=== PATIENT | female | born 1960 | race Caucasian/White ===

== ENCOUNTER 2018-08-20 16:28 | Emergency (ER) | payer BC ==
[2018-08-20 16:52] VITALS: BP 153/68
--- NOTE | 2018-08-20 17:06 | UC ---
Skin Complaint HPI - HPI Summary HPI Summary: 58-year-old woman comes in with a chief complaint of a right forearm skin injury. 4 days ago while she was cleaning the kitchen she noticed a blister on the right forearm that she accidentally broke. She's been putting antibiotic ointment on it since that time and there is a scab with a blister broke however the surrounding area is getting erythematous and more firm. No fevers or chills feels well otherwise. No prior history of HSV are MRSA. No drainage at this time. 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 Pain Intensity: 1 - Allergy/Home Medications Allergies/Adverse Reactions: Allergies Allergy/AdvReac Type Severity Reaction Status Date / Time No Known Allergies Allergy Verified 08/20/18 16:53 Home Medications: Home Medications Escitalopram (NF) [Lexapro 5 mg (NF)] 5 mg PO DAILY 08/20/18 [History Confirmed 08/20/18] Levothyroxine TAB* [Synthroid TAB*] 88 mcg PO 0800 08/20/18 [History Confirmed 08/20/18] PMH/Surg Hx/FS Hx/Imm Hx Previously Healthy: Yes Endocrine History: Hypothyroidism - Surgical History Surgical History: None - Family History Known Family History: Positive: Non-Contributory - Social History Alcohol Use: None Substance Use Type: None Smoking Status (MU): Former Smoker Review of Systems All Other Systems Reviewed And Are Negative: Yes Constitutional: Positive: Negative Skin: Positive: Other - SEE HPI Eyes: Positive: Negative ENT: Positive: Negative Respiratory: Positive: Negative Cardiovascular: Positive: Negative Gastrointestinal: Positive: Negative Motor: Positive: Negative Neurovascular: Positive: Negative Musculoskeletal: Positive: Negative Neurological: Positive: Negative Psychological: Positive: Negative Is Patient Immunocompromised?: No Physical Exam Triage Information Reviewed: Yes Appearance: Well-Appearing, No Pain Distress, Well-Nourished Vital Signs: Initial Vital Signs Temp 98.8 F 08/20/18 16:48 Pulse 75 08/20/18 16:48 Resp 16 08/20/18 16:48 BP 153/68 08/20/18 16:48 Pulse Ox 100 08/20/18 16:48 Vital Signs Reviewed: Yes Eye Exam: Normal Eyes: Positive: Conjunctiva Clear Neck exam: Normal Neck: Positive: Supple Respiratory: Positive: No respiratory distress Musculoskeletal Exam: Normal Musculoskeletal: Positive: Strength Intact Neurological Exam: Normal Neurological: Positive: Alert, Muscle Tone Normal Psychological Exam: Normal Psychological: Positive: Age Appropriate Behavior Skin: Positive: Other - Right forearm patient has a 1 cm diameter wound that is superficial and it has a scab on it. It's surrounded by erythema there is no drainage at this time. It's mildly swollen underneath there is no fluctuance of abscess. No streaking. Course/Dx - Course Course Of Treatment: We discussed the different possibilities the cause of the wound. Potential the patient could have burned herself and then broke the blister. No history of HSV although that still a possibility. Blisters are large for HSV. Inconsistent with MRSA infection. Another possibility is that she's having a reaction to the neomycin she's been putting on it. I let her know to stop using the antibiotic ointment she is using at this time. At this time we'll treat with Keflex and mupirocin. Reevaluation if worse or not improving. - Diagnoses Provider Diagnosis: Cellulitis of right forearm Discharge - Sign-Out/Discharge Documenting (check all that apply): Patient Departure All imaging exams completed and their final reports reviewed: No Studies - Discharge Plan Condition: Stable Disposition: HOME Prescriptions: Cephalexin CAP* [Keflex CAP*] 500 mg PO QID #40 cap Mupirocin 1 applic TOPICAL BID #22 gm Patient Education Materials: Cellulitis (ED) Referrals: Jacinda Estrada MD [Primary Care Provider] - Additional Instructions: FOLLOW UP WITH YOUR DOCTOR IF NOT COMPLETELY IMPROVED. GET RECHECKED FOR ANY WORSENING OF YOUR CONDITION; SPREAD ON INFECTION, FEVER, YOU FEEL ILL OR QUESTIONS OR CONCERNS. - Billing Disposition and Condition Condition: STABLE Disposition: Home
== END 2018-08-20 17:15 | disposition home or self-care (01) ==
LOC: UCEAST 16:28
DX: L03.113 Cellulitis of right upper limb (principal); E03.9 Hypothyroidism, unspecified; Z79.899 Other long term (current) drug therapy; Z87.891 Personal history of nicotine dependence
CPT/HCPCS: 99212; G0463

== ENCOUNTER 2019-09-16 09:18 | Emergency (ER) | payer BC ==
--- OUTSIDE RECORDS SUMMARY | 2019-09-16 11:20 | XMS REPORT | Summary of Care ---
:1960 Author Organization [facility] Address [address] [place] [place] [address] Care Team Providers Name Role Phone Jacinda Estrada Primary Care Provider Reason for Visit Reason Comments Physical pap 03/25/16, mammo 12/17/18, dexa 04/05/14, colonoscopy 10/24/15 Imm/Inj Tdap and Shingrix administered today Gynecologic Exam Encounter Details Date Type Department Care Team Description 09/14/2019 Office Visit Jacinda Renee MD Routine general medical examination at a health care facility (Primary Dx); Medicine [address] Encounter for gynecological examination; [address] [place] [address] Encounter for screening breast examination; [place] [address] Acquired hypothyroidism; [phone] PTSD (post-traumatic stress disorder); (Fax) Elevated blood sugar; Lipid disorder; Need for vaccination; Encounter for gynecological examination without abnormal finding; Vegetarian Allergies Active Allergy Reactions Severity Noted Date Comments No Known Allergies Unknown Reaction 04/11/2008 documented as of this encounter (statuses as of 09/14/2019) Medications Medication Sig Dispensed Refills Start Date End Date Status Multiple Take by mouth 0 Active Vitamins-Minerals (ZINC NEEDED. PO) levothyroxine Take 1 Tab by 90 Tab 3 12/23/2018 Active (SYNTHROID) 88 MCG Oral mouth BEFORE TabIndications: Acquired BREAKFAST. hypothyroidism escitalopram (LEXAPRO) 5 Take 1 Tab by 90 Tab 3 12/23/2018 Active MG Oral TabIndications: mouth DAILY. PTSD (post-traumatic stress disorder) documented as of this encounter (statuses as of 09/14/2019) Active Problems Problem Noted Date Esophageal dilatation 07/01/2018 Osteopenia 06/17/2014 PTSD (post-traumatic stress disorder) 11/18/2012 Hypothyroid 11/12/2011 Vegetarian diet 10/15/2011 documented as of this encounter (statuses as of 09/14/2019) Immunizations Name Administration Dates Next Due Adacel TdaP 03/05/2007 TD Vaccine 12/12/1997 TDAP Vaccine 09/14/2019 Tuberculin Skin Test 12/01/2002 ZOSTER (SHINGRIX) VACCINE 09/14/2019 documented as of this encounter Social History Tobacco Use Types Packs/Day Years Used Date Former Smoker 1.5 20 Quit: 07/14/1991 Smokeless Tobacco: Former User Chew Quit: 07/14/1997 Comments: quit 1991 Alcohol Use Drinks/Week oz/Week Comments No 0 Standard drinks or equivalent 0.0 Sex Assigned at Date Recorded Not on file documented as of this encounter Last Filed Vital Signs Vital Sign Reading Time Taken Comments Blood Pressure 114/62 09/14/2019 8:54 AM EST Pulse 60 09/14/2019 8:54 AM EST Temperature 36.8 09/14/2019 8:54 AM EST C (98.3 F) Respiratory Rate - - Oxygen Saturation 97% 09/14/2019 8:54 AM EST Inhaled Oxygen Concentration - - Weight 63 kg (138 lb 12.8 oz) 09/14/2019 8:54 AM EST Height 167.6 cm (5' 6") 09/14/2019 8:54 AM EST Body Mass Index 22.4 09/14/2019 8:54 AM EST documented in this encounter Progress Notes Jacinda Estrada MD - 09/14/2019 9:00 AM EST PATIENT: Oly Francisco DATE: 09/14/2019 Oly Francisco is a 59-y.o. female presents for routine physical exam and Also , she has additionalcomplaints of 1. Vegetarian diet .- ( dairy ) Patient Active Problem List Diagnosis ? Vegetarian diet ? Hypothyroid ? PTSD (post-traumatic stress disorder) ? Osteopenia ? Esophageal dilatation Exercize yes No MINA. No cardiopulmonary symptoms as dyspnea, cough. palpitations , or chest pain on exertion. No upper or lower GI complaints as heartburn, abdominal pain, change in bowel habits, blackor bloody stools. No urinary tract symptoms or incontinence. No symptoms as nocturia, discharge No bruising/ bleeding. No neurological complaints as dysphagia, imbalance, vertigo , focal weakness. No insomnia.+ Rested after nights sleep. No depression. Does not stop breathing at night. Current Outpatient Medications Medication Sig ? escitalopram (LEXAPRO) 5 MG Oral Tab Take 1 Tab by mouth DAILY. ? levothyroxine (SYNTHROID) 88 MCG Oral Tab Take 1 Tab by mouth BEFORE BREAKFAST. ? Multiple Vitamins-Minerals (ZINC PO) Take by mouth NEEDED. No current facility-administered medications for this visit. Social History Socioeconomic History ? Marital status: Other Spouse name: Not on file ? Number of children: Not on file ? Years of education: Not on file ? Highest education level: Not on file Occupational History ? Not on file Social Needs ? Financial resource strain: Not on file ? Food insecurity Worry: Not on file Inability: Not on file ? Transportation needs Medical: Not on file Non-medical: Not on file Tobacco Use ? Smoking status: Former Smoker Packs/day: 1.50 Years: 20.00 Pack years: 30.00 Last attempt to quit: 07/14/1991 Years since quittin.1 ? Smokeless tobacco: Former User Types: Chew Quit date: 07/14/1997 ? Tobacco comment: quit 1991 Substance and Sexual Activity ? Alcohol use: No Alcohol/week: 0.0 standard drinks ? Drug use: No ? Sexual activity: Yes Partners: Female Lifestyle ? Physical activity Days per week: Not on file Minutes per session: Not on file ? Stress: Not on file Relationships ? Social connections Talks on phone: Not on file Gets together: Not on file Attends christian service: Not on file Active member of club or organization: Not on file Attends meetings of clubs or organizations: Not on file Relationship status: Not on file ? Intimate partner violence Fear of current or ex partner: Not on file Emotionally abused: Not on file Physically abused: Not on file Forced sexual activity: Not on file Other Topics Concern ? Back Care Not Asked ? Bike Helmet Not Asked ? Blood Transfusions Not Asked ? Caffeine Concern Not Asked ? Exercise Not Asked ? Hobby Hazards Not Asked ? International Travel Not Asked ? Service Not Asked ? Occupational Exposure Not Asked ? Seat Belt Not Asked ? Self-Exams Not Asked ? Sleep Concern Not Asked ? Special Diet Not Asked ? Stress Concern Not Asked ? Weight Concern Not Asked Social History Narrative Works at [employer]. Family History Problem Relation Age of Onset ? Breast Cancer Maternal Grandmother ? Arthritis Mother also Parkinsons ? Hypertension Mother OBJECTIVE: BP 114/62 | Pulse 60 | Temp 98.3 F (36.8 C) | Ht 5' 6" (1.676 m) | Wt 138 lb 12.8 oz (63kg) | LMP 05/10/2010 | SpO2 97% | BMI 22.40 kg/m Gen well Heent: ears TM and canals normal eyes Perrl; EOMI oroph-wnl Neck- no JVD,thyromegaly, bruit or lymphademopathy No supraclavicular, axillary or inguinal lymphadenopathy Lungs-clear to auscultation CV RRR no Murmur, gallop or clilck Breasts-no masses or diimpling (examined supine and sitting) Abd. nontender; no organomegaly, abnormal pulsations , bowel sounds normoactive - Bimanual urethra/ vul/vag neg; cervix wnl; uterus and , adnexa-unable Ext-no edema; rash, DP +2 skin- no rashes or suspicious lesions Neuro- intellect intact; CN II.XII intact; U&LE-strength wnl gait nl A/P ICD-9-CM ICD-10-CM 1. Routine general medical examination at a health care facility V70.0 Z00.00 2. Encounter for gynecological examination V72.31 Z01.419 3. Encounter for screening breast examination V76.10 Z12.39 MAMMO SCREENING TOMOSYNTHESIS BILATERAL 4. Acquired hypothyroidism 244.9 E03.9 CBC WITH DIFFERENTIAL COMPREHENSIVE METABOLIC PANEL THYROID STIMULATING HORMONE 5. PTSD (post-traumatic stress disorder) 309.81 F43.10 6. Elevated blood sugar 790.29 R73.9 CANCELED: GLYCOHEMOGLOBIN A1C 7. Lipid disorder 272.9 E78.9 CANCELED: LIPID PROFILE 8. Need for vaccination V05.9 Z23 [place] TET, DIP & ACEL PERTUSSIS(DX Z23) [place] SHINGRIX (ZOSTER) 9. Encounter for gynecological examination without abnormal finding V72.31 Z01.419 PAP SMEAR THINPREP AND HPV 10. Vegetarian V49.89 Z78.9 VITAMIN B12 / FOLATE Breast self-exam and bone health recommendations were made Chief Complaint Patient presents with ? Physical pap 03/25/16, mammo 12/17/18, dexa 04/05/14, colonoscopy 10/24/15 ? Imm/Inj Tdap and Shingrix administered today ? Gynecologic Exam Mammo-- ordered Colon- up to date DT Up to date PAP deferred ( Calderon- too small to accodoate speculum ) DEXA- up to date EKG There are no Patient Instructions on file for this visit. Author: Jacinda Estrada MD documented in this encounter Plan of Treatment Name Type Priority Associated Diagnoses Date/Time CBC WITH DIFFERENTIAL Lab Routine Acquired hypothyroidism 09/14/2019 9:47 AM EST COMPREHENSIVE METABOLIC Lab Routine Acquired hypothyroidism 09/14/2019 9: 47 AM PANEL EST THYROID STIMULATING Lab Routine Acquired hypothyroidism 09/14/2019 9:47 AM HORMONE EST VITAMIN B12 / FOLATE Lab Routine Vegetarian 09/14/2019 9:47 AM EST Name Type Priority Associated Diagnoses Order Schedule CBC WITH DIFFERENTIAL Lab Routine Acquired hypothyroidism Expected: 09/13/2019 (Approximate), Expires: 03/11/2020 COMPREHENSIVE METABOLIC Lab Routine Acquired hypothyroidism Expected: PANEL 09/13/2019 (Approximate), Expires: 03/11/2020 THYROID STIMULATING Lab Routine Acquired hypothyroidism Expected: HORMONE 09/13/2019 (Approximate), Expires: 03/11/2020 PAP SMEAR THINPREP AND Lab Routine Encounter for Ordered: 09/14/2019 HPV gynecological examination without abnormal finding VITAMIN B12 / FOLATE Lab Routine Vegetarian Expected: 09/14/2019 (Approximate), Expires: 09/13/2020 MAMMO SCREENING Imaging Routine Encounter for screening Expected: TOMOSYNTHESIS BILATERAL breast examination 09/14/2019, Expires: 12/12/2020 Health Maintenance Due Date Last Done Comments LUNG CANCER SCREENING 02/26/2015 PAP SMEAR 03/25/2019 03/25/2016, 03/25/2016, 02/10/2013, Additional history exists ZOSTER IMMUNIZATION SERIES 11/09/2019 09/14/2019 (2 of 2) DEPRESSION SCREENING 09/13/2020 09/14/2019 LIPID DISORDER SCREENING 03/30/2021 03/30/2016, 06/18/2014, 03/25/2008 Colonoscopy 10/23/2025 10/24/2015 DTaP/Tdap/Td Vaccines (3 - 09/13/2029 09/14/2019, 12/12/1997 Tdap) HEPATITIS A IMMUNIZATION Aged Out No longer eligible SERIES based on patient's age to complete this topic HPV IMMUNIZATION SERIES Aged Out No longer eligible based on patient's age to complete this topic MENINGOCOCCAL VACCINE IMM Aged Out No longer eligible based on patient's age to complete this topic PNEUMOCOCCAL 0-64 YRS Aged Out No longer eligible based on patient's age to complete this topic documented as of this encounter Results Not on filedocumented in this encounter Visit Diagnoses Diagnosis Routine general medical examination at a health care facility Encounter for gynecological examination Encounter for screening breast examination Acquired hypothyroidism Unspecified hypothyroidism PTSD (post-traumatic stress disorder) Posttraumatic stress disorder Elevated blood sugar Other abnormal glucose Lipid disorder Unspecified disorder of lipoid metabolism Need for vaccination Need for prophylactic vaccination and inoculation against unspecified single disease Encounter for gynecological examination without abnormal finding Routine gynecological examination Vegetarian Other specified conditions influencing health status documented in this encounter Insurance Payer Benefit Plan / Subscriber ID Effective Dates Phone Address Type Group BCBS NATIONAL [facility] NATIONAL [id number] 2015-Present Blue [employer]/Blue Shield (Work) [id number] documented as of this encounter Advance Directives Type Date Recorded 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
[2019-09-16 11:27] VITALS: BP 119/74
[2019-09-16 12:15] LABS: Influenza A Molecular Negative (Negative); Influenza B Molecular Negative (Negative)
--- NOTE | 2019-09-16 12:42 | UC ---
FLU HPI - HPI Summary HPI Summary: 59 y/o female presents to the urgent care c/o fever, mild sore throat, nasal congestion w/ clear nasal discharge since Friday09/14/2019. Pt reports she got the Tdap and shingles vaccines on Friday, Then in the afternoon she developed fever up to 102F. She has taken OTC medication to alleviate symptoms. She is concerned w/ influenza. This morning she woke up w/ decrease appetite, body aches and MINA. Pt denies fever, today, SOB, chest pain, abdominal pain, N/V/D. Pt also denies Hx of recent travel outside the country. 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 Onset/Duration: Gradual Onset, Lasting Days - 2 days, Still Present, Worse Since - today Severity Currently: Mild Severity Initially: Mild Pain Intensity: 2 - body aches Pain Scale Used: 0-10 Numeric Associated Signs & Symptoms: Positive: Fever, Myalgia, Cough - dry, Sore Throat , Nasal Congestion - clear, Headache - Risk Factors Influenza Risk Factors: Negative - Allergy/Home Medications Allergies/Adverse Reactions: Allergies Allergy/AdvReac Type Severity Reaction Status Date / Time No Known Allergies Allergy Verified 09/16/19 11:27 Home Medications: Home Medications Escitalopram * [Lexapro 5 mg (NF)] 5 mg PO DAILY 08/20/18 [History Confirmed 11/30] Levothyroxine TAB* [Synthroid TAB*] 88 mcg PO 0800 08/20/18 [History Confirmed 09/16/19] PMH/Surg Hx/FS Hx/Imm Hx Previously Healthy: Yes Endocrine History: Hypothyroidism Psychological History: Anxiety - Surgical History Surgical History: None - Family History Known Family History: Positive: None - Pt denies FMHX, Non-Contributory - Social History Occupation: Employed Full-time Lives: With Family Alcohol Use: None Substance Use Type: None Smoking Status (MU): Former Smoker Review of Systems All Other Systems Reviewed And Are Negative: Yes Constitutional: Positive: Fever, Fatigue, Other - body aches Skin: Positive: Negative Eyes: Positive: Negative ENT: Positive: Sore Throat, Nasal Discharge - clear, Sinus Congestion Respiratory: Positive: Cough - mild dry Cardiovascular: Positive: Negative Gastrointestinal: Positive: Negative Genitourinary: Positive: Negative Motor: Positive: Negative Neurovascular: Positive: Negative Musculoskeletal: Positive: Myalgia Neurological/Mental Status: Positive: Headache Psychological: Positive: Negative Is Patient Immunocompromised?: No Physical Exam - Summary Physical Exam Summary: VITAL SIGNS: Reviewed. GENERAL: Patient is a well developed and nourished female who is sitting comfortably in the examining table. Patient is not in any acute respiratory distress. HEAD AND FACE: No signs of trauma. No ecchymosis, hematomas or skull depressions. No sinus tenderness. EYES: PERRLA, EOMI x 2, No injected conjunctiva, no nystagmus. No photophobia. EARS: Hearing grossly intact. Ear canals and tympanic membranes are within normal limits. MOUTH: Positive pharynx with mild erythema, no exudates, No B/L tonsillar enlargement , no exudate. Uvula in midline. edematous nasal mucosa w/ clear nasal discharge, clear PND NECK: Supple, trachea is midline, Positive anterior cervical lymphadenopathy, no JVD, no carotid bruit, no c-spine tenderness, neck with full ROM. No meningeal signs, no Kernig's or brudzinskis signs. CHEST: Symmetric, no tenderness at palpation LUNGS: Clear to auscultation bilaterally. No wheezing or crackles. CVS: Regular rate and rhythm, S1 and S2 present, no murmurs or gallops appreciated. ABDOMEN: Soft, non-tender. No signs of distention. No rebound no guarding, and no masses palpated. Bowel sounds are normal. EXTREMITIES: FROM in all major joints, no edema, no cyanosis or clubbing. NEURO: Alert and oriented x 3. No acute neurological deficits. Pt follows commands. SKIN: Dry and warm Triage Information Reviewed: Yes Vital Signs: Initial Vital Signs Temp 98.5 F 09/16/19 11:23 Pulse 71 09/16/19 11:23 Resp 18 09/16/19 11:23 BP 119/74 09/16/19 11:23 Pulse Ox 100 09/16/19 11:23 Flu Course/Dx - Course Course Of Treatment: 59 y/o female presents to the urgent care c/o fever, mild sore throat, nasal congestion w/ clear nasal discharge since Friday09/14/2019. Pt reports she got the Tdap and shingles vaccines on Friday, Then in the afternoon she developed fever up to 102F. She has taken OTC medication to alleviate symptoms. She is concerned w/ influenza. This morning she woke up w/ decrease appetite, body aches and MINA. Pt denies fever, today, SOB, chest pain, abdominal pain, N/V/D. Pt also denies Hx of recent travel outside the country. Hx obtained. Pt is hemodynamically stable, A&OX3, w/ URI on examination. Pt explained her fever was probably a reaction from the Tdap she got on Friday , Rapid influenza A&B: negative. Pt advise to take ibuprofen PO or Tylenol to alleviates symptoms of pain and swelling. Advised on hand washing to avoid spreading. Pt advised to rest, eat well and avoid strenuous exercise. If symptoms do not improve or worsen advised to return to the urgent care or f/u with her PCP for further evaluation and treatment. Pt understood and agreed w/ plan of care. - Differential Dx/Diagnosis Differential Diagnosis/HQI/PQRI: Bronchitis, Influenza, Pneumonia, Upper Respiratory Infection Provider Diagnosis: Upper respiratory infection Discharge ED - Sign-Out/Discharge Documenting (check all that apply): Patient Departure - D/C home All imaging exams completed and their final reports reviewed: No Studies - Discharge Plan Condition: Stable Disposition: HOME Patient Education Materials: Upper Respiratory Infection (ED), Tdap and Td Vaccines for Adults (ED) Forms: *Work Release Referrals: Jacinda Estrada MD [Primary Care Provider] - 3 Days Additional Instructions: 1- Rapid influenza A&B; negative. 2-Please continue taking Tylenol PO q6-8hrs prn as instructed after meals to alleviate fever, and MINA. Increase fluid intake, eat well, rest and avoid strenuous exercise 3-If symptoms do not improve or worsen please return to the urgent care or f/u with your PCP in 3 days for further evaluation and treatment. - Billing Disposition and Condition Condition: STABLE Disposition: Home
== END 2019-09-16 13:15 | disposition home or self-care (01) ==
LOC: UCEAST 09:18
DX: J06.9 Acute upper respiratory infection, unspecified (principal); Z87.891 Personal history of nicotine dependence
CPT/HCPCS: 99211; G0463